=== PATIENT | female | born 1985 | race African-American/Black ===

== ENCOUNTER → 2016-12-24 14:32 | Outpatient (CLI) | payer OTHER | END | disposition home or self-care (01) | LOC: D.US 14:32 | DX: N93.8 Other specified abnormal uterine and vaginal bleeding (principal) ==

== ENCOUNTER 2019-07-21 18:51 | Emergency (ER) | payer MEDICAID ==
[~2019-07-21] VITALS: Ht 162.6 cm; Wt 95.5 kg
[2019-07-21 18:57] VITALS: Ht 162.6 cm; Wt 95.5 kg
[2019-07-21] MEDS ORDERED: BIRTH CONTROL (18:59)
[2019-07-21] MEDS ORDERED: B12 INJECTIONS (18:59)
[2019-07-21] MEDS ORDERED: WELLBUTRIN XL150 M1 PO (18:59)
[2019-07-21 19:21] LABS: BASOPHILS 0.6 % (0-2); EOSINOPHILS 2.9 % (0-7); HEMOGLOBIN 13.1 g/dL (12-16); IMMATURE GRANULOCYTES 0.1 % (0-5); LYMPHOCYTES 39.2 % (15-50); MCH 28.7 pg (26.0-34.0); MCHC 32.8 g/dL (31.0-37.0); MCV 87.7 fL (80.0-100.0); MONOCYTES 6.5 % (2-11); NEUTROPHILS 50.7 % (40-80); RBC 4.56 10x6/uL (4.00-5.40); RDW 15.5 % (11.5-14.5); WBC 7.1 10x3/uL (4.8-10.8)
[2019-07-21 19:27] LABS: PLATELET COUNT 317 10x3/uL (130-400)
[2019-07-21 19:41] LABS: CALCIUM 8.5 mg/dL (8.5-10.1); CARBON DIOXIDE 21.9 mmol/L (21.0-32.0); CREATININE - SERUM 1.1 mg/dL (0.6-1.3); POTASSIUM - SERUM 3.9 mmol/L (3.5-5.1)
[2019-07-21 19:50] LABS: ALBUMIN 3.3 g/dL (3.4-5.0); BILIRUBIN - TOTAL 0.33 mg/dL (0.2-1.3); PROTEIN - SERUM 7.2 g/dL (6.4-8.2); THYROID STIMULATING HORMONE 1.83 uIU/mL (0.36-3.74)
[2019-07-21 20:39] LABS: APPEARANCE CLEAR (CLEAR); BILIRUBIN NEGATIVE (NEGATIVE); COLOR YELLOW (YELLOW); GLUCOSE NEGATIVE (NEGATIVE); KETONE NEGATIVE (NEGATIVE); NITRITE NEGATIVE (NEGATIVE); PROTEIN NEGATIVE (NEGATIVE); UROBILINOGEN NORMAL (NORMAL)
[2019-07-21 20:44] LABS: UDS - AMPHET NEGATIVE QUAL (NEGATIVE); UDS - BARB NEGATIVE QUAL (NEGATIVE); UDS - BENZO NEGATIVE QUAL (NEGATIVE); UDS - COCAINE NEGATIVE QUAL (NEGATIVE); UDS - OPIATE NEGATIVE QUAL (NEGATIVE); UDS - PCP NEGATIVE QUAL (NEGATIVE); UDS - THC NEGATIVE QUAL (NEGATIVE)
[2019-07-21 20:45] LABS: HCG URINE NEGATIVE (NEGATIVE)
[2019-07-22 03:16] VITALS: BP 137/73
== END 2019-07-22 03:18 ==
LOC: D.ER 18:51
PROVIDERS: Family Medicine
DX: T14.91XA Suicide attempt, initial encounter (principal); X78.1XXA Intentional self-harm by knife, initial encounter; Y93.9 Activity, unspecified; Y92.9 Unspecified place or not applicable; S61.512A Laceration without foreign body of left wrist, initial encounter